=== PATIENT | female | born 1960 | race Caucasian/White ===

== ENCOUNTER 2016-07-16 08:40 | Day surgery (SDC) | payer OTHER ==
[~2016-07-16] VITALS: Ht 167.6 cm; Wt 64.0 kg
[~2016-07-16 08:40] MED LIST: BUPIVACAINE/PF-EPI 0.5% 1:200K ONE
[2016-07-16] MEDS ORDERED: LACTATED RINGERS 1,000 ML IV SCH ×2 (09:17→11:25)
[2016-07-16 09:19] VITALS: BP 117/64
[2016-07-16] MEDS ORDERED: DULO30CA2 PO (09:21)
[2016-07-16] MEDS ORDERED: LEVO100T PO (09:21)
[2016-07-16] MEDS ORDERED: SCOPOLAMINE PATCH, 1.5MG PATCH.TD72 TD ONE ×2 (10:32)
[2016-07-16] MEDS ORDERED: PROPOFOL 10 MG/ML, 20ML ONE (10:40)
[2016-07-16] MEDS ORDERED: ONDANSETRON 2MG/ML, 2ML ONE (10:40)
[2016-07-16] MEDS ORDERED: CEFAZOLIN 1,000 MG ONE (10:40)
[2016-07-16] MEDS ORDERED: SUCCINYLCHOLINE 20 MG/ML, 10ML ONE (10:40)
[2016-07-16] MEDS ORDERED: DEXAMETHASONE 4 MG/ML, 1ML ONE (10:40)
[2016-07-16] MEDS ORDERED: FENTANYL PF 250 MCG/5ML ONE (11:06)
[2016-07-16] MEDS ORDERED: MIDAZOLAM 1 MG/ML, 2ML ONE (11:06)
[2016-07-16] MEDS ORDERED: ACETAMINOPHEN 325 MG TABLET PO PRN (11:30)
[2016-07-16] MEDS ORDERED: METOPROLOL 1 MG/ML, 5ML IV PRN (11:30)
[2016-07-16] MEDS ORDERED: OXYcodone 5 MG/5 ML ORAL.SOL UDC PO PRN (11:30)
[2016-07-16] MEDS ORDERED: FENTANYL PF 100 MCG/2ML IV PRN (11:30)
[2016-07-16] MEDS ORDERED: morphine SULFATE 10 MG/ML, 1ML IVPush PRN (11:30)
[2016-07-16] MEDS ORDERED: HALOPERIDOL 5 MG/ML IV PRN (11:30)
[2016-07-16] MEDS ORDERED: hydrALAzine 20 MG/ML, 1ML IV PRN (11:30)
[2016-07-16] MEDS ORDERED: ONDANSETRON 2MG/ML, 2ML IVPush PRN (11:30)
[2016-07-16] MEDS ORDERED: ALBUTEROL/IPRATROPIUM 2.5MG/0.5MG, 3 ML NPPB PRN (11:30)
[2016-07-16] MEDS ORDERED: MEPERIDINE/PF 25MG/0.5ML IVPush PRN (11:30)
[2016-07-16] MEDS ORDERED: OXYcodone 5 MG/5 ML ORAL.SOL UDC ONE (11:35)
[2016-07-16] MEDS ORDERED: ACETAMINOPHEN 325 MG TABLET ONE (11:35)
[2016-07-16] MEDS ORDERED: HYDROmorphone 2 MG/ML, 1ML ONE (11:35)
[2016-07-16] MEDS: HYDROmorphone 1 MG/ML, 1ML IV PRN ×2 (11:42→12:04)
[2016-07-16] MEDS ORDERED: ONDANSETRON ODT 4 MG ONE (15:40)
[2016-07-16] MEDS ORDERED: ONDANSETRON 4 MG TABLET PO PRN (16:00)
== END 2016-07-16 16:30 | disposition home or self-care (01) ==
LOC: OUT 08:40
PROVIDERS: ATTEND Surgery
DX: K43.9 Ventral hernia without obstruction or gangrene (principal); E03.9 Hypothyroidism, unspecified; F32.9 Major depressive disorder, single episode, unspecified; Z82.0 Family history of epilepsy and other diseases of the nervous system; Z72.89 Other problems related to lifestyle; Z88.0 Allergy status to penicillin; Z88.6 Allergy status to analgesic agent; Z98.42 Cataract extraction status, left eye; Z98.41 Cataract extraction status, right eye; Z96.1 Presence of intraocular lens
CPT/HCPCS: 49560; J0330; J0690; J1100; J1170; J2250; J2405; J2704; J3010; J7120